=== PATIENT | female | born 1995 | race Caucasian/White ===

== ENCOUNTER 2021-02-27 02:00 | Inpatient (IN) | payer OTHER ==
[2021-02-27] MEDS ORDERED: FAMOTIDINE 20 MG/2 ML INJ IV ONE ×2 (03:41→07:08)
[2021-02-27] MEDS ORDERED: BICITRA ORAL LIQD 30ML PO ONE (03:41)
[2021-02-27] MEDS ORDERED: METOCLOPRAMIDE 10 MG/2 ML INJ IV ONE ×2 (03:41→07:08)
[2021-02-27] MEDS: LACTATED RINGERS 1,000 ML IV SCH ×3 (04:00→17:00)
[2021-02-27] MEDS ORDERED: OXYTOCIN DRIP 30 UNITS/500 ML BAG IV SCH ×3 (04:00→11:19)
[2021-02-27 04:34] LABS: Basophils % (Auto) 0.3 % (0.0-1.8); Eosinophils # (Auto) 0.1 K/mm3 (0.0-0.4); Eosinophils % (Auto) 1.1 % (0.0-4.3); Hematocrit 31.4 % (30.3-42.9); Hemoglobin 9.7 gm/dl (10.1-14.3); Lymphocytes # (Auto) 2.9 K/mm3 (1.2-5.4); Lymphocytes % (Auto) 28.4 % (13.4-35.0); Mean Corpuscular HGB Conc 31 % (30-34); Mean Corpuscular Volume 78 fl (79-97); Monocytes # (Auto) 0.7 K/mm3 (0.0-0.8); Monocytes % (Auto) 7.3 % (0.0-7.3); Platelet Count 263 K/mm3 (140-440); Red Blood Count 4.01 M/mm3 (3.65-5.03)
[2021-02-27] MEDS ORDERED: CARBOPROST TROMETHAMINE 250 MCG/1 ML INJ IM PRN (05:17)
[2021-02-27] MEDS ORDERED: LIDOCAINE (2%) 20 MG/1 ML VIAL 20 ML MDV INFILTRATI ONE (05:17)
[2021-02-27] MEDS ORDERED: TERBUTALINE 1 MG/1 ML INJ SUB-Q PRN (05:17)
[2021-02-27] MEDS ORDERED: NalbUPHINE 10 MG/1 ML INJ IV PRN ×2 (05:17→06:07)
[2021-02-27] MEDS ORDERED: METHYLERGONOVINE MALEATE 0.2 MG/ML VIAL IM PRN (05:17)
[2021-02-27] MEDS ORDERED: fentaNYL 100 MCG/2 ML INJ IV PRN (05:17)
[2021-02-27] MEDS ORDERED: ONDANSETRON 4 MG/2 ML INJ IV PRN ×3 (05:17→08:00)
[2021-02-27] MEDS ORDERED: OXYTOCIN 10 UNIT/1 ML INJ IM PRN (05:17)
[2021-02-27] MEDS ORDERED: ACETAMINOPHEN 325 MG TAB PO PRN (05:17)
[2021-02-27] MEDS ORDERED: miSOPROStol 200 MCG TAB PR PRN (05:17)
[2021-02-27] MEDS ORDERED: ePHEDrine SULFATE 50 MG/1 ML INJ IV PRN ×2 (05:17→06:07)
[2021-02-27] MEDS ORDERED: LOPERAMIDE 2 MG CAP PO PRN (05:17)
[2021-02-27] MEDS ORDERED: MINERAL OIL 30 ML ORAL LIQD PO PRN (05:17)
[2021-02-27] MEDS ORDERED: LACTATED RINGERS 1,000 ML IV SCH ×2 (05:30→07:15)
--- NOTE | 2021-02-27 05:36 | History and Physical Report ---
History of Present Illness Date of examination: 02/27/21 Date of admission: 02/27/2021 Chief complaint: Leaking of water, contractions History of present illness: 25 year old presents to L&D with contractions and leaking of fluid. Patient denies vaginal bleeding. Patient reports active movement. Patient received care at [facility]. records are available. LMP unknown: EDC: 03/02/21 (based on 14 4/7 week US). significant for the following: history of section in 2019 for breech/placenta previa; obesity; anemia (supplemented with iron); rubella nonimmune. labs are as follows: A+, pap negative, gonorrhea negative, chlamydia negative, AFP negative, RPR negative, 1 hour sugar test negative, HIV negative, GBS negative, rubella nonimmune, hepatitis B nonreactive. 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 denies: smoking, alcohol abuse, prescription drug abuse, IV drug use - Obstetrical History Expected Date of Delivery: 03/02/21 Actual Gestation: 39 Week(s) 4 Day(s) : 5 Para: 2 Hx # Term Pregnancies: 1 Number of Pregnancies: 1 Spontaneous Abortions: 2 Induced : 0 Number of Living Children: 2 Medications and Allergies Allergies Allergy/AdvReac Type Severity Reaction Status Date / Time No Known Allergies Allergy Verified 02/27/21 03:46 Active Meds: Active Medications Acetaminophen (Acetaminophen 325 Mg Tab) 650 mg PO Q4H PRN PRN Reason: Pain, Mild (1-3) Carboprost Tromethamine (Carboprost Tromethamine 250 Mcg/1 Ml Inj) 250 mcg IM ONCE PRN PRN Reason: Uterine Bleeding Ephedrine Sulfate (Ephedrine Sulfate 50 Mg/1 Ml Inj) 10 mg IV Q2M PRN PRN Reason: Hypotension Fentanyl (Fentanyl 100 Mcg/2 Ml Inj) 100 mcg IV Q2H PRN PRN Reason: Pain,Severe (7-10) LABOR PAIN Lactated Ringer's (Lactated Ringers) 1,000 mls @ 2,250 mls/hr IV PREOP BRANDON Stop: 02/28/21 04:12 Last Admin: 02/27/21 05:09 Dose: 2,250 mls/hr Documented by: Oxytocin/Sodium Chloride (Pitocin/Ns 30 Unit/500ml) 30 units in 500 mls @ 0 mls/hr IV TITR BRANDON; Protocol Lactated Ringer's (Lactated Ringers) 1,000 mls @ 125 mls/hr IV DIRECT BRANDON Oxytocin/Sodium Chloride (Pitocin/Ns 30 Unit/500ml) 30 units in 500 mls @ 40 mls/hr IV TITR BRANDON; Protocol Lidocaine (Lidocaine (2%) 20 Mg/1 Ml Vial 20 Ml Mdv) 20 ml INFILTRATI ONCE ONE Stop: 02/27/21 05:18 Loperamide HCl (Loperamide 2 Mg Cap) 2 mg PO ONCE PRN PRN Reason: give with Hemabate Methylergonovine Maleate (Methylergonovine Maleate 0.2 Mg/Ml Vial) 0.2 mg IM ONCE PRN PRN Reason: Uterine Bleeding Mineral Oil (Mineral Oil 30 Ml Oral Liqd) 30 ml PO QHS PRN PRN Reason: Constipation Misoprostol (Misoprostol 200 Mcg Tab) 800 mcg DE ONCE PRN PRN Reason: Uterine Bleeding Nalbuphine HCl (Nalbuphine 10 Mg/1 Ml Inj) 10 mg IV Q2H PRN PRN Reason: Pain, Moderate (4-6) Ondansetron HCl (Ondansetron 4 Mg/2 Ml Inj) 4 mg IV Q8H PRN PRN Reason: Nausea And Vomiting Oxytocin (Oxytocin 10 Unit/1 Ml Inj) 10 unit IM ONCE PRN PRN Reason: Uterine Bleeding Terbutaline Sulfate (Terbutaline 1 Mg/1 Ml Inj) 0.25 mg SUB-Q ONCE PRN PRN Reason: Hyperstimulation/Hypertonicity Review of Systems All systems: negative (contractions, leaking of water) - Vital Signs Vital signs: Vital Signs Pulse Pulse Ox 80 99 02/27/21 02:35 02/27/21 02:35 Temp Pulse Resp BP Pulse Ox 97.9 F 75 18 119/56 99 02/27/21 02:37 02/27/21 05:10 02/27/21 02:37 02/27/21 02:37 02/27/21 05:10 - Physical Exam Abdomen: Positive: normal appearance, soft. Negative: distention, tenderness, guarding, rigidity Genitourinary (Female): Positive: normal external genitalia, normal perenium. Negative: perineal/vulvar lesions Vagina: Positive: other (clear fluid) Uterus: Positive: enlarged. Negative: tender Anus/Rectum: Positive: normal perianal skin Extremities: Negative: tenderness - Obstetrical FHR: category 2 Uterine Contraction Monitor Mode: External Cervical Dilatation: 4.5 Cervical Effacement Percentage: 60 station: -3 Uterine Contraction Pattern: Regular Uterine Contraction Intensity: Moderate Results Result Diagrams: 02/27/21 04:00 Abnormal lab results 02/27/21 02/27/21 Range/Units 02:58 04:00 Hgb 9.7 L (10.1-14.3) gm/dl MCV 78 L (79-97) fl MCH 24 L (28-32) pg RDW 16.0 H (13.2-15.2) % Membranes Rupture Positive A (Negative) All other labs normal. Assessment and Plan A: at 39 weeks, 4 days gestation. Active labor. GBS negative. Previous section 2019. Patient refuses repeat section. P: Admit. Continuous EFM. Patient refused repeat section. Consulted with Dr. Casarez re: this patient and patient's refusal of section. Dr. Casarez remains in house.
[2021-02-27] MEDS ORDERED: diphenhydrAMINE 50 MG/ML VIAL IV PRN (06:07)
[2021-02-27] MEDS ORDERED: LACTATED RINGERS 250 ML IV SOLN IV ONE (06:07)
[2021-02-27] MEDS ORDERED: NALOXONE 2 MG/2 ML INJ IV PRN (06:07)
--- NOTE | 2021-02-27 06:39 | Anesthesia Consultation ---
Anesthesia Consult and Med Hx Date of service: 02/27/21 - Airway Anesthetic Teeth Evaluation: Good ROM Head & Neck: Adequate Mental/Hyoid Distance: Adequate Mallampati Class: Class II Intubation Access Assessment: Probably Good - Pulmonary Exam CTA: Yes - Cardiac Exam Cardiac Exam: RRR - Pre-Operative Health Status ASA Pre-Surgery Classification: ASA2 Proposed Anesthetic Plan: Epidural - Pulmonary Hx Smoking: No Hx Sleep Apnea: No - Cardiovascular System Hx Hypertension: No Hx Heart Attack/AMI: No Hx Angina: No - Gastrointestinal Hx Gastroesophageal Reflux Disease: No - Endocrine Hx Renal Disease: No Hx Liver Disease: No Hx Insulin Dependent Diabetes: No Hx Non-Insulin Dependent Diabetes: No - Hematic Hx Anemia: Yes - Other Systems Hx Alcohol Use: No Hx Obesity: Yes - Additional Comments Anesthesia Medical History Comments: previous c/s x1
--- NOTE | 2021-02-27 06:41 | Progress Note ---
Labor Epidural - Labor Epidural Start Time: 06:20 Stop Time: 06:30 Performed by:: OLAYINKA SINGH Procedure: Patient is requesting epidural for labor and pain. H&P, labs were reviewed. Patient IDed, H&P reviewed, all questions and concerns were answered, and consent was signed. Timeout was performed at bedside. Patient in sitting position. Sterile prep and drape was performed. 3ml of 1% lidocaine skin wheal at L[4]- L [5]. 17-gauge Tuohy epidural needle was advanced to loss of resistance with air technique 7cm. Negative CSF negative blood. Epidural catheter advanced to [12] centimeters. [negative] Aspiration [negative] test dose. Sterile dressing applied. Patient tolerated procedure.
[2021-02-27] MEDS ORDERED: fentaNYL-BUPIV 2 MCG/ML-0.125% 200 MCG/100 ML BAG EPIDURAL SCH (07:00)
--- NOTE | 2021-02-27 07:05 | Event Note ---
Date: 02/27/21 Patient has epidural. FSE and IUPC in place. SVE /-2. Variable FHR decelerations noted; normal baseline FHR and moderate variability. Consulted with Dr. Casarez re: FHR tracing and interventions taken. Repositioned patient and placed oxygen per face mask. IV fluid bolus given.
[2021-02-27] MEDS ORDERED: BICITRA ORAL LIQD 30ML PO NR (07:08)
--- NOTE | 2021-02-27 07:26 | Anesthesia Day of Surgery ---
Anesthesia Day of Surgery - Day of Surgery Patient Examined: Yes Patient H&P Reviewed: Yes Patient is NPO: Yes Beta Blockers: No Cardiac Clearance: No Pulmonary Clearance: No Bal's Test: N/A
[2021-02-27] MEDS ORDERED: KETOROLAC 30 MG/1 ML INJ ONE (07:49)
[2021-02-27] MEDS ORDERED: ONDANSETRON 4 MG/2 ML INJ ONE (07:49)
[2021-02-27] MEDS ORDERED: dexAMETHasone 20 MG/5 ML VIAL ONE (07:49)
[2021-02-27] MEDS ORDERED: LIDOCAINE 2%/EPINEPHRINE 1:200,000 VIAL (20 ML) INFILTRATI ONE (07:49)
[2021-02-27] MEDS ORDERED: SODIUM CHLORIDE 0.9% IRR 1,500 ML BOTTLE IR ONE (07:50)
[2021-02-27] MEDS ORDERED: WATER FOR IRRIG STERILE 1,500 ML BOTTLE IR ONE (07:50)
[2021-02-27] MEDS ORDERED: ceFAZolin/STERILE WATER 2 GM/20 ML SYRINGE IV ONE (07:50)
[2021-02-27] MEDS ORDERED: PROMETHAZINE 25 MG RECT SUPP PR PRN (08:00)
[2021-02-27] MEDS ORDERED: PROMETHAZINE 25 MG TAB PO PRN (08:00)
[2021-02-27] MEDS ORDERED: HYDROmorphone 1 MG/1 ML INJ IV PRN (08:00)
[2021-02-27] MEDS ORDERED: ceFAZolin/Water 2 GM/20 ML 2 GM/20 ML SYRINGE IV NR (08:00)
[2021-02-27] MEDS ORDERED: NALOXONE 0.4 MG/1 ML INJ IV PRN ×3 (08:00→11:19)
[2021-02-27] MEDS ORDERED: BUPIVACAINE/PF (0.25%) 2.5 MG/ML 30 ML VIAL INFILTRATI ONE (08:52)
[2021-02-27] MEDS ORDERED: LANOLIN/ZINC/DIMETHICONE (LANSINOH) 7 GM TP PRN ×2 (09:00→11:19)
[2021-02-27] MEDS ORDERED: oxyCODONE /ACETAMINOPHEN 5-325MG TAB PO PRN ×2 (09:00→11:19)
[2021-02-27] MEDS ORDERED: HYDROcodone/ACETAMINOPHEN 5-325 MG TAB PO PRN (09:00)
[2021-02-27] MEDS ORDERED: WITCH HAZEL/ GLYCERIN PAD TP PRN ×2 (09:00→11:19)
[2021-02-27] MEDS ORDERED: MORPHINE 2 MG/1 ML INJ IV PRN (09:00)
[2021-02-27] MEDS ORDERED: IBUPROFEN 600 MG TAB PO PRN (09:00)
[2021-02-27] MEDS ORDERED: MORPHINE 4 MG/1 ML INJ IV PRN (09:00)
--- NOTE | 2021-02-27 09:40 | Procedure Note ---
OB Delivery Note - Delivery Date of Delivery: 02/27/21 Surgeon: NOREEN PRATT Estimated blood loss: other (QBL 637cc) - Section Preop diagnosis: repeat , nonreassuring FHR tracing (in labor at 5cm dilatation; undocumented scar) Postop diagnosis: same (and intraabdominal adhesions) section procedure: repeat low transverse (and lysis of adhesions) Disposition: floor Complications: none Narrative: Date: 02/27/21 Surgeon: Noreen Pratt MD Preop Dx: IUP at 39.4wks, premature rupture of membranes, latent labor; h/O C/Section x1 with undocumented scar, Initially desired TOLAC however category III FHR after epidural received and not improved with ephedrine; remote from [facility]; Obesity Postop Dx: same and intraop adhesions and window in lower uterine segment Procedure : Repeat Low transverse section and lysis of adhesions Anesthesia: Epidural Intake: 1500cc crystalloids Output: 50cc EBL: QBL 637cc After the risks, benefits and alternatives of procedure discussed, patient signed consents and was taken to the operating room. Pt already given epidural anesthesia. After same was adequate, patient was prepped and draped in the usual sterile fashion. Melendez catheter in place and draining clear urine. Pt was given prophylactic antibiotic per protocol and time out was done Pfannenstiel skin incision was made and taken sharply to the fascia and the incision extended using electrocautery. Superior edge of the fascia was grasped with joao clamps and the rectus muscle using blunt dissection and also using electrocautery. Lower portion of the fascia also sharply. Rectus muscle in the midline and Peritoneal cavity entered bluntly and extended with good visualization of the bladder. Mark retractor placed The bladder flap was created sharply using metzenbaum scissors. Lower uterine segment with clear window 4cm horizontally then same entered transversely and amniotic sac entered using allys clamps. Uterine incision extended using bandage scissors. Infant delivered, persistent O-P and nuchal cord x1 reduced, then bulb suctioned, cord clamped and baby handed to waiting pediatricians. Placenta then delivered manually and completely and uterine cavity cleared of all clots and debri. The uterus was not exteriorized and closed in 2 layers using [0-vicryl] suture in a running locked fashion and then an additional layer of imbrication suture. Excellent hemostasis noted. The gutters were cleared of clots and debri and anterior peritoneum closed with scar tissue and rectus musle reapproximated using 0--vicryl suture in a running fashion. Rectus fascia closed with 0-vicryl suture in a continous and subcutaneous tissue copiously irrigated with normal saline and re-approximated using 3-0 vicryl suture. Excellent hemostasis remains. The skin was closed with 4-0 monocryl suture and steristrips placed with pressure dressing. Sponge, lap, instrument and needle counts x2 were normal. Patient tolerated the procedure well and was taken to recovery room stable. Findings: Viable male infant, APGARS 8/9 and weight 3500g. Normal shape uterus with very thin laboring lower segment and a window 4cm, tubes and ovaries bilaterally. - A at 1 minute: 8 at 5 minutes: 9 Gender: Male (wt 3500g; clear amniotic fluid; nuchal cord x1)
--- NOTE | 2021-02-27 11:30 | Post Anesthesia Evaluation ---
- Post Anesthesia Evaluation Patient Participated: Yes Airway Patent: Yes Stable Respiratory Function: Yes Nausea/Vomiting: No Temp > 96.8F: Yes Pain Manageable: Yes Adequeate Hydration: Yes Anesthesia Complications: No Block Receding Appropriately: Yes Patient on Ventilator: No
[2021-02-27] MEDS: IBUPROFEN 800 MG TAB PO PRN (13:40)
--- NOTE | 2021-02-27 14:58 | Event Note ---
Date: 02/27/21 nurse called on for follow up with low urine output intra op and also in the PACU. CMP ordered to be done with repeat H/H in the usual routine schedule. Nurse told to give 1liter of LR bolus and follow call in 2hrs from me showed 700cc clear urine in the garcia bag. Will continue with routine postop care.
[2021-02-27] MEDS: PRENATAL VIT27-FE FUMARATE-FOLIC ACID VIT TAB PO SCH (16:07)
[2021-02-27] MEDS: FERROUS SULFATE 325 MG TAB PO SCH (16:10)
[2021-02-27 21:28] LABS: Hemoglobin 9.4 gm/dl (10.1-14.3)
[2021-02-27 21:45] LABS: Alanine Aminotransferase 6 units/L (7-56); Albumin 2.8 g/dL (3.9-5); Blood Urea Nitrogen 8 mg/dL (7-17); Hemolysis Index 2
[2021-02-27] MEDS: oxyCODONE /ACETAMINOPHEN 5-325MG TAB PO PRN (22:04)
[2021-02-27 22:12] LABS: BUN/Creatinine Ratio 20
[2021-02-28] MEDS: LACTATED RINGERS 1,000 ML IV SCH (01:05)
[2021-02-28] MEDS: oxyCODONE /ACETAMINOPHEN 5-325MG TAB PO PRN ×3 (04:38→18:53)
[2021-02-28] MEDS: FERROUS SULFATE 325 MG TAB PO SCH (10:06)
[2021-02-28] MEDS: PRENATAL VIT27-FE FUMARATE-FOLIC ACID VIT TAB PO SCH (10:06)
--- NOTE | 2021-02-28 13:51 | Progress Note ---
Assessment and Plan A: S/P repeat LTCS Asymptomatic anemia P: Continue routine pp orders Continue abt per Dr Hermelindo Coronado prescribed Encourage ambulation D/c home within 24-48 hrs if stable Subjective - Subjective Date of service: 02/28/21 Principal diagnosis: pod # 1 repeat LTCS Patient reports: appetite normal, voiding normally, pain well controlled, flatus, ambulating normally [place]: doing well, bottle feeding Objective - Vital Signs Latest vital signs: Vital Signs Temp Pulse Resp BP Pulse Ox Pulse Ox 02/28/21 08:09 98.2 F 71 18 103/47 99 02/28/21 08:00 98 02/28/21 05:47 97.5 F L 57 L 18 100/47 99 02/28/21 01:04 98.0 F 70 18 106/53 98 02/27/21 22:04 15 02/27/21 21:03 97.9 F 62 18 109/60 99 02/27/21 20:00 98 02/27/21 15:15 98.2 F 56 L 18 108/61 98 Intake and Output 02/27/21 02/28/21 02/28/21 22:59 06:59 14:59 Intake Total 340 1000 Output Total 2400 1600 Balance -206 -600 Intake: IV 100 1000 Lactated Ringers 1,000 ml 1000 @ 125 mls/hr IV DIRECT BRANDON Rx#:[id number] ceFAZolin 2 GM In NaCl 0. 100 9% 100 ml @ 200 mls/hr IV Q8H BRANDON Rx#:[id number] Oral 240 Output: Urine 2400 1600 Indwelling Catheter 2400 1600 Other: Total, Intake Amount 240 Total, Output Amount 900 700 # Voids Indwelling Catheter 1 - Exam Breasts: Present: normal Abdomen: Present: normal appearance, soft, normal bowel sounds Vulva: both: normal Uterus: Present: normal, firm, fundal height below umbilicus Extremities: Present: normal Incision: Present: normal, dry, intact - Labs Labs: Abnormal lab results 02/27/21 02/27/21 Range/Units 21:05 21:05 Hgb 9.4 L (10.1-14.3) gm/dl Hct 30.0 L (30.3-42.9) % Carbon Dioxide 20 L (22-30) mmol/L Creatinine 0.4 L (0.6-1.2) mg/dL Glucose 106 H (65-100) mg/dL ALT 6 L (7-56) units/L Alkaline Phosphatase 145 H (35-129) units/L Total Protein 5.7 L (6.3-8.2) g/dL Albumin 2.8 L (3.9-5) g/dL
[2021-02-28] MEDS ORDERED: SIMETHICONE 80 MG CHEW TAB PO PRN (20:30)
[2021-02-28] MEDS ORDERED: MAGNESIUM HYDROXIDE (MOM) ORAL LIQD UDC PO PRN (22:40)
[2021-03-01] MEDS: oxyCODONE /ACETAMINOPHEN 5-325MG TAB PO PRN ×2 (00:02→05:24)
[2021-03-01] MEDS: FERROUS SULFATE 325 MG TAB PO SCH (09:34)
[2021-03-01] MEDS: IBUPROFEN 800 MG TAB PO PRN ×2 (09:34→17:49)
[2021-03-01] MEDS: PRENATAL VIT27-FE FUMARATE-FOLIC ACID VIT TAB PO SCH (09:34)
--- NOTE | 2021-03-01 17:58 | Progress Note ---
Assessment and Plan POD#2 C/S doing well 1. Loose steristrip replaced and pt taught how to dry wound immediately after having shower 2. Make appt to follow up in office in 1wk for wound check 3. all questions encouraged and answered Subjective Date of service: 03/01/21 Principal diagnosis: POD#2 C/S Interval history: Pt has no complaints. pt desires to go home. Pain controlled with meds, voids without difficulty and passing flatus. Breast and bottle feed. Vag bleed less than a period. Pt took shower today. Objective - Constitutional Vitals: Vital Signs - 12hr 03/01/21 03/01/21 08:00 08:14 Temperature 98.3 F Pulse Rate 90 Respiratory 18 Rate Blood Pressure 120/56 O2 Sat by Pulse 96 Oximetry O2 Sat by Pulse 98 Oximetry [ Throughout] General appearance: Present: no acute distress - Neck Neck: normal ROM - Respiratory Respiratory effort: normal - Breasts Breasts: normal - Cardiovascular Rhythm: regular Extremities: No edema - Gastrointestinal General gastrointestinal: Present: soft, non-tender, other (Incision with steristrips damp on the left, dry on the right. One steristrip loose.) - Genitourinary Female genitourinary: other (Uterine fundus non-tender, firm and 2cm below the umbilicus. Lochia small) - Integumentary Integumentary: warm, dry - Neurologic Neurologic: moves all extremities - Psychiatric Psychiatric: cooperative - Labs CBC & Chem 7: 02/27/21 21:05 02/27/21 21:05 Medications & Allergies - Medications Allergies/Adverse Reactions: Allergies No Known Allergies Allergy (Verified 02/27/21 03:46) Home Medications: Home Medications Medication Instructions Recorded Confirmed Last Taken Type Ibuprofen [Motrin] 800 mg PO Q8HR PRN 21 Days #40 02/27/21 Unknown Rx tablet oxyCODONE /ACETAMINOPHEN [Percocet 1 tab PO Q4HR PRN 21 Days #30 tab 02/27/21 Unknown Rx 5/325] Active Medications: Generic Name Dose Route Start Last Admin Trade Name Freq PRN Reason Stop Dose Admin Acetaminophen 650 mg 02/27/21 05:17 Acetaminophen 325 Mg Tab PO Q4H PRN Pain, Mild (1-3) Hydrocodone Bitart/Acetaminophen 1 each 02/27/21 09:00 02/27/21 16:10 Hydrocodone/Acetaminophen 5-325 Mg Tab PO 1 each Q6H PRN Administration Pain, Moderate (4-6) Carboprost Tromethamine 250 mcg 02/27/21 05:17 Carboprost Tromethamine 250 Mcg/1 Ml Inj IM ONCE PRN Uterine Bleeding Diphenhydramine HCl 12.5 mg 02/27/21 06:07 Diphenhydramine 50 Mg/Ml Vial IV Q2H PRN Itching Ephedrine Sulfate 10 mg 02/27/21 06:07 Ephedrine Sulfate 50 Mg/1 Ml Inj IV Q2M PRN Hypotension Ferrous Sulfate 325 mg 02/27/21 11:19 03/01/21 09:34 Ferrous Sulfate 325 Mg Tab PO 325 mg QDAY BRANDON Administration Hydromorphone HCl 0.5 mg 02/27/21 08:00 Hydromorphone 1 Mg/1 Ml Inj IV Q4H PRN breakthrough pain > 7/10 Oxytocin/Sodium Chloride 30 units in 500 mls @ 0 mls/hr 02/27/21 04:00 Pitocin/Ns 30 Unit/500ml IV TITR BRANDON Protocol As Directed Oxytocin/Sodium Chloride 30 units in 500 mls @ 40 mls/hr 02/27/21 11:19 Pitocin/Ns 30 Unit/500ml IV TITR BRANDON Protocol Ibuprofen 600 mg 02/27/21 09:00 Ibuprofen 600 Mg Tab PO Q6H PRN Pain, Mild (1-3) Ibuprofen 800 mg 02/27/21 11:19 03/01/21 17:49 Ibuprofen 800 Mg Tab PO 800 mg Q6H PRN Administration Pain, Moderate (4-6) Loperamide HCl 2 mg 02/27/21 05:17 Loperamide 2 Mg Cap PO ONCE PRN give with Hemabate Magnesium Hydroxide 30 ml 02/28/21 22:40 02/28/21 22:51 Magnesium Hydroxide (Mom) Oral Liqd Udc PO 30 ml QDAY PRN Administration Constipation Methylergonovine Maleate 0.2 mg 02/27/21 05:17 Methylergonovine Maleate 0.2 Mg/Ml Vial IM ONCE PRN Uterine Bleeding Mineral Oil 30 ml 02/27/21 05:17 Mineral Oil 30 Ml Oral Liqd PO QHS PRN Constipation Misoprostol 800 mcg 02/27/21 05:17 Misoprostol 200 Mcg Tab OK ONCE PRN Uterine Bleeding Morphine Sulfate 2 mg 02/27/21 09:00 Morphine 2 Mg/1 Ml Inj IV Q4H PRN Pain, Moderate (4-6) Morphine Sulfate 4 mg 02/27/21 09:00 Morphine 4 Mg/1 Ml Inj IV Q4H PRN Pain , Severe (7-10) Multi-Ingredient Ointment 1 applic 02/27/21 09:00 02/28/21 10:07 Lanolin/Zinc/Dimethicone (Lansinoh) 7 Gm TP 1 applic PRN PRN Administration dryness/cracking Multi-Ingredient Ointment 1 applic 02/27/21 11:19 Lanolin/Zinc/Dimethicone (Lansinoh) 7 Gm TP PRN PRN dryness/cracking Multivitamins/Iron/Calcium 1 each 02/27/21 11:19 03/01/21 09:34 [id number] Fumarate-Folic Acid Vit Tab PO 1 each QDAY BRANDON Administration Nalbuphine HCl 2.5 mg 02/27/21 06:07 Nalbuphine 10 Mg/1 Ml Inj IV Q2H PRN Itching Naloxone HCl 0.2 mg 02/27/21 06:07 Naloxone 2 Mg/2 Ml Inj IV Q5M PRN Respiratory sedation Naloxone HCl 0.1 mg 02/27/21 11:19 Naloxone 0.4 Mg/1 Ml Inj IV Q2MIN PRN Res Rate </= 8 or 02 SAT < 92% Ondansetron HCl 4 mg 02/27/21 08:00 Ondansetron 4 Mg/2 Ml Inj IV Q8H PRN Nausea And Vomiting Oxycodone/Acetaminophen 2 tab 02/27/21 10:00 03/01/21 05:24 Oxycodone /Acetaminophen 5-325mg Tab PO 2 tab Q4H PRN Administration Pain, Moderate (4-6) Oxycodone/Acetaminophen 2 tab 02/27/21 11:19 Oxycodone /Acetaminophen 5-325mg Tab PO Q4H PRN Pain, Moderate (4-6) Oxytocin 10 unit 02/27/21 05:17 Oxytocin 10 Unit/1 Ml Inj IM ONCE PRN Uterine Bleeding Promethazine HCl 25 mg 02/27/21 08:00 Promethazine 25 Mg Tab PO Q6H PRN Nausea And Vomiting Simethicone 80 mg 02/28/21 20:30 02/28/21 20:53 Simethicone 80 Mg Chew Tab PO 80 mg Q6H PRN Administration Gas pain Sodium Chloride 10 ml 02/27/21 09:00 Sodium Chloride 0.9% 10 Ml Flush Syringe IV 03/12/21 08:59 PRN NR Sodium Chloride 10 ml 02/27/21 11:19 Sodium Chloride 0.9% 10 Ml Flush Syringe IV 03/09/21 23:59 PRN NR Witch Caryn/Glycerin 1 each 02/27/21 09:00 02/28/21 10:07 Witch Caryn/ Glycerin Pad TP 1 each PRN PRN Administration Hemorrhoids/cleansing/soothing Witch Caryn/Glycerin 1 each 02/27/21 11:19 Witch Caryn/ Glycerin Pad TP PRN PRN Hemorrhoids/cleansing/soothing
[2021-03-01 17:59] VITALS: BP 128/64
[2021-03-01] MEDS ORDERED: MEASLES, MUMPS & RUBELLA 12,500 UNIT/0.5 ML VACCINE SUB-Q ONE (20:38)
--- NOTE | 2021-03-01 23:43 | Discharge Summary ---
Providers - Providers Date of Admission: 02/27/21 05:18 Date of discharge: 02/28/21 Attending physician: TIMOTHY PRATT Primary care physician: TIMOTHY PRATT Hospitalization Reason for admission: section (x1), IUP at term (desired TOLAC and at 5cm, pt had non-reassuring FHR) Delivery: (repeat) Procedure: repeat low transverse Other procedures: none complications: none Discharge diagnosis: IUP at term delivered [place] baby: male Hospital course: Pt came in labor with previous C/S x1 and desired TOLAC however pt had non- reassuring FHR at 5cm, therefore repeat section done uncomplicated. Pt had uneventful hospital course and was discharged home on post op day#2 per pt request. Condition at discharge: Good Disposition: 01 HOME / SELF CARE / HOMELESS - Discharge Diagnoses (1) S/P repeat low transverse Status: Acute (2) Term , repeat Status: Acute Plan - Discharge Medications Prescriptions: Ibuprofen [Motrin] 800 mg PO Q8HR PRN 21 Days #40 tablet PRN Reason: Pain, Moderate (4-6) oxyCODONE /ACETAMINOPHEN [Percocet 5/325] 1 tab PO Q4HR PRN 21 Days #30 tab PRN Reason: Pain , Severe (7-10) - Provider Discharge Summary Activity: no sex for 6 weeks Diet: routine Additional instructions: [] Smoking cessation referral if applicable(refer to patient education folder for contact #) [] Refer to [facility]'s [facility] Booklet Call your doctor immediately for: * Fever > 100.5 * Heavy vaginal bleeding ( >1 pad per hour) * Severe persistent headache * Shortness of breath * Reddened, hot, painful area to leg or breast * Drainage or odor from incision. * Keep incision clean and dry at all times and follow doctor's instructions regarding bathing/showering - Follow up plan Follow up: TIMOTHY PRATT MD [Primary Care Provider] - 7 Days Forms: [facility] Discharge Summary
== END 2021-03-01 21:00 | disposition home or self-care (01) | DRG 788 ==
LOC: TRG 02:00 → APU 02:10 → LD 05:18 → TRG 05:18 → APU 07:50 → OB 10:44
PROVIDERS: ADMIT Obstetrics & Gynecology; ATTEND Obstetrics & Gynecology
PROC: 10D00Z1 Extraction of Products of Conception, Low, Open Approach (ICD-10-PCS; principal; 2021-02-27)
PROC: 10H07YZ Insertion of Other Device into Products of Conception, Via Natural or Artificial Opening (ICD-10-PCS; 2021-02-27)
PROC: 3E0R3BZ Introduction of Anesthetic Agent into Spinal Canal, Percutaneous Approach (ICD-10-PCS; 2021-02-27)
PROC: 00HU33Z Insertion of Infusion Device into Spinal Canal, Percutaneous Approach (ICD-10-PCS; 2021-02-27)
PROC: 3E0234Z Introduction of Serum, Toxoid and Vaccine into Muscle, Percutaneous Approach (ICD-10-PCS; 2021-03-01)
DX: O76 Abnormality in fetal heart rate and rhythm complicating labor and delivery (principal); O34.211 Maternal care for low transverse scar from previous cesarean delivery; Z3A.39 39 weeks gestation of pregnancy; Z37.0 Single live birth; Z23 Encounter for immunization; Z20.822 Contact with and (suspected) exposure to COVID-19; O99.62 Diseases of the digestive system complicating childbirth; K66.0 Peritoneal adhesions (postprocedural) (postinfection); O90.81 Anemia of the puerperium
CPT/HCPCS: 36415; 59025; 80053; 84112; 85014; 85018; 85025; 86592; 86850; 86900; 86901; 90471; 90707; 99211; G0378; J3490; G0463; J0690; J1100; J1885; J2405; J2765; J7120; U0003